=== PATIENT | female | born 1945 ===

== ENCOUNTER → 2023-03-09 | Outpatient (CLI) | payer MEDICARE ==
[~2023-03-09] MED LIST: ASPI325T6 PO; COLACE 100100 MG/CAP PO; DUO-KAPS1 CAP PO; LOPRESSOR 550 MG/TAB PO; NORCO 325 MG-51 TAB PO; OSCAL 500 TAB500 MG PO; PRINIVIL10 MG PO; QUESTRAN LI4 GM/5 GM PO; SENEXON-S 50-81 EACH PO; VITAMIN C500 MG PO
== END ==
LOC: COL.RAD 12:36
DX: N13.39 Other hydronephrosis (principal); N28.89 Other specified disorders of kidney and ureter

== ENCOUNTER → 2023-03-31 | Outpatient (CLI) | payer MEDICARE ==
[~2023-03-31] MED LIST changes: +B-121000 MCG PO; +Furosemide 40 MG/4 ML VIAL IV SCH; +PREDNISONE20 MG PO; +ULTRAM 50MG TAB50 MG PO
== END ==
LOC: COL.RAD 11:53
DX: N13.1 Hydronephrosis with ureteral stricture, not elsewhere classified (principal)
CPT/HCPCS: A9562; J1940

== ENCOUNTER 2023-08-30 14:19 | Inpatient (IN) | payer MEDICARE ==
[~2023-08-30] VITALS: Ht 152.4 cm; Wt 50.2 kg
[~2023-08-30 14:19] MED LIST changes: -Furosemide 40 MG/4 ML VIAL IV SCH
[2023-10-07] VITALS (14 sets, daily range): BP systolic 105–177; BP diastolic 47–95; PULSE 51–61; TEMP 97.5–98
[2023-10-07] MEDS ORDERED: Meclizine 25 MG TAB PO SCH (05:30)
[2023-10-07] MEDS ORDERED: LR 1,000 ML IV SCH (05:30)
[2023-10-07] MEDS ORDERED: Famotidine 20 MG TAB PO SCH (05:30)
[2023-10-07] MEDS ORDERED: Celecoxib 200 MG CAP PO SCH (06:00)
[2023-10-07] MEDS ORDERED: Acetaminophen 500 MG TAB PO SCH ×2 (06:00→13:00)
[2023-10-07] MEDS ORDERED: Gabapentin 100 MG CAP PO SCH (06:00)
[2023-10-07] MEDS ORDERED: LAMISIL250 M1 PO (06:42)
[2023-10-07] MEDS ORDERED: DESYREL 50MG50 MG PO (06:42)
[2023-10-07] MEDS ORDERED: Atracurium 50 MG/5 ML VIAL IV ONE (06:43)
[2023-10-07] MEDS ORDERED: fentaNYL 50 MCG/ML 2 ML VIAL ONE (06:44)
[2023-10-07] MEDS ORDERED: Midazolam 2 MG/2 ML VIAL ONE (06:45)
[2023-10-07] MEDS ORDERED: ELIQUIS 5MG PO (06:47)
[2023-10-07] MEDS ORDERED: dexAMETHasone 10 MG/ML VIAL ONE ×2 (06:50→07:53)
[2023-10-07] MEDS ORDERED: Lidocaine 1% w EPI (1:100,000) 20 ML Multi-Dose VIAL ONE (06:50)
--- NOTE | 2023-10-07 06:54 | NUR ---
PATIENT REPORTED THAT SHE HAD NOT TAKEN HER ELIQUIS FOR 2 WEEKS, INFORMED OVER PHONE. OK TO PROCEED WITH SURGERY TODAY.
[2023-10-07] MEDS ORDERED: 1/2 NS 1,000 ML IV SCH (07:15)
[2023-10-07] MEDS ORDERED: Naloxone 0.4 MG/ML VIAL IV PRN (07:15)
[2023-10-07] MEDS ORDERED: oxyCODONE 5 MG TAB PO PRN ×2 (07:15)
[2023-10-07] MEDS ORDERED: Morphine 4 MG/ML VIAL IV PRN (07:15)
[2023-10-07] MEDS ORDERED: Ondansetron 4 MG/2 ML VIAL IV PRN ×2 (07:15→08:30)
[2023-10-07] MEDS ORDERED: Ondansetron 4 MG/2 ML VIAL ONE (07:53)
[2023-10-07] MEDS ORDERED: Topical Skin Adhesive 1 EACH (1 ML) TOP ONE (07:55)
[2023-10-07] MEDS ORDERED: Labetalol 100 MG/20 ML Multi-Dose VIAL ONE (08:22)
[2023-10-07] MEDS ORDERED: Glycopyrrolate 0.2 MG/ML 1 ML VIAL ONE (08:28)
[2023-10-07] MEDS ORDERED: hydrALAZINE 20 MG/ML 1 ML VIAL IV PRN (08:30)
[2023-10-07] MEDS ORDERED: Meperidine 50 MG/ML 1 ML VIAL IV PRN (08:30)
[2023-10-07] MEDS ORDERED: HYDROmorphone 1 MG/1 ML SYRINGE [PACU/SDC ONLY] IV PRN (08:30)
[2023-10-07] MEDS ORDERED: fentaNYL 50 MCG/ML 1 ML SYRINGE/VIAL [PACU/SDC ONLY] IV PRN (08:30)
[2023-10-07] MEDS ORDERED: LR 1,000 ML IV ONE (08:49)
[2023-10-07] MEDS ORDERED: Metoprolol Tartrate 50 MG TAB PO SCH (09:00)
--- NOTE | 2023-10-07 12:16 | NUR ---
PATIENT ARRIVED TO FLOOR AT 1040 FROM PACU. BP INCREASED 177/67, PATIENT IN OBVIOUS DISCOMFORT. PATIENT ANSWERS TO NAME BUT UNABLE TO TELL ME HER FIRST NAME, BIRTHDAY, OR WHERE SHE IS. PATIENT FAMILY AT BEDSIDE. PATIENT NOT AWAKE ENOUGH TO HAVE SIPS OF WATER BUT TOLERATING MOUTH SWABS. PATIENT HAS NO NEEDS AT THIS TIME.
--- NOTE | 2023-10-07 12:28 | NUR ---
PATIENT BECOMING MORE AWAKE A&O X4 TALKING WITH FAMILY. PAIN LEVEL SEEMS TO HAVE DECREASED PATIENT STATES LITTLE PAIN UNABLE TO GIVE A RATING AT THIS TIME. PATIENT STATES NO NEEDS AT THIS TIME.
[2023-10-07] MEDS ORDERED: ceFAZolin 1 G in Water For Injection,Sterile 10 ML IV SCH (15:00)
[2023-10-07] MEDS ORDERED: traZODone 50 MG TAB PO SCH (21:00)
[2023-10-08] VITALS (12 sets, daily range): BP systolic 101–138; BP diastolic 48–72; PULSE 51–58; TEMP 97.8–98.3
[2023-10-08 06:27] LABS: HEMATOCRIT 24.7 % (37.0-47.0); HEMOGLOBIN 8.1 g/dl (12.5-16.0)
[2023-10-08 06:44] LABS: CALCIUM 8.8 mg/dL (8.4-10.2); CREATININE, serum 2.31 mg/dL (0.57-1.11)
--- NOTE | 2023-10-08 08:55 | NUR ---
pt awake and resting in bed. reports pain an 8/10, pain medication given. x4 lap and midline incisions are cdi. ann to dd w clear urine output, plan to remove this morning after patient eats breakfast. scds to ble. fluids infusing into right forearm IV. fall precautions in place. pt denies needs at this time. call light in reach.
--- NOTE | 2023-10-08 09:09 | NUR ---
SW met with patient to complete intake and discuss discharge planning. Patient informed SW that she resides with her daughter (Carrie Maria [phone]) in her home in [place]. Patient reports that she is fairly independent with ADLs does have assistance with her daughter for some tasks. Patient reports that she uses a cane, walker and shower chair- no additional DMEs reported. Patient shared that her PCP is Dr. Montes and her pharmacy of choice is [facility] in [place]. Patient does not have DPOA on file, she was provided information on forms available with hospital if she was interested. Patient is going to visit with her daughter and get back with SW if they decided on completing DPOA. Discharge plan: Patient is anticipating to discharge back to her home with her daughter at this time.
[2023-10-08] MEDS ORDERED: Cholestyramine/Aspartame (Sugar Free) 4 GM PACK PO SCH (09:16)
--- NOTE | 2023-10-08 10:19 | NUR ---
ann discontinued without difficulty, pale yellow urine output.
[2023-10-08] MEDS ORDERED: Phenol 1.4% Spray 180 ML BOTTLE MM PRN (11:45)
--- NOTE | 2023-10-08 13:09 | NUR ---
Data: Patient accepted spiritual care visit offered during [employer] rounds. Life review. Patient is thankful for her daughter with whom she now lives. Patient is Yars[place]. Assessment: Patient has strong valentin. Patient desired prayer. Plan of Care: [employer] provided supportive listening, a rosary, and prayer. Patient thanked [employer] for the visit. Chaplains will remain available as needed/requested while Patient is admitted to this hospital.
--- NOTE | 2023-10-08 18:07 | NUR ---
pt IV infiltrated. per dr Figueroa, pt ok to not have IV in place.
[2023-10-09] VITALS (7 sets, daily range): BP systolic 101–116; BP diastolic 51–61; PULSE 55–62; TEMP 97.6–98.3
--- NOTE | 2023-10-09 06:34 | NUR ---
UP TO RESTROOM WITH MINIMAL ASSIST, VOIDING. NO IV. TAKING PO WELL. READY TO GO HOME TODAY. JONI INTACT TO ABD, NO PAIN REPORTED.
--- NOTE | 2023-10-09 07:22 | NUR ---
Bedside report received from JEIMY Calles. Pt resting in bed with eyes closed and no complaints. Call light within reach.
--- NOTE | 2023-10-09 08:21 | NUR ---
Pt awake in bed watching tv. Shift assessment completed. VSS. Pt has complaints of ABD pain rating 3/10. Tylenol administered per mar. Pt refuses breakfast this AM. Incisions to ABD CDI. [place] intact and edges well approximated. Pt has no request at this time. Call light within reach and fall precautions in place.
--- NOTE | 2023-10-09 10:17 | NUR ---
travelers' aid worker was informed by plastic jig and fixture builder that pt is a likely discharge. No needs. Discharge Plan: home
--- NOTE | 2023-10-09 14:28 | NUR ---
Discharge instructions provided to pt and pt verbalized understanding of discharge paperwork. Pt is going back home with daughter. Pt left in ED waiting room as daughter is in ED waiting room for son. ED admissions aware that pt is leaving with daughter.
== END 2023-10-09 14:25 | disposition home or self-care (01) | DRG 661 ==
LOC: INPTSU 10-07 05:43 → SURG 10-07 07:30
PROVIDERS: ADMIT Urology
PROC: 8E0Y4CZ Robotic Assisted Procedure of Lower Extremity, Percutaneous Endoscopic Approach (ICD-10-PCS; 2023-10-07)
PROC: 0TT14ZZ Resection of Left Kidney, Percutaneous Endoscopic Approach (ICD-10-PCS; principal; 2023-10-07 07:30)
DX: N13.30 Unspecified hydronephrosis (principal)
CPT/HCPCS: A4314; A9284; J0690; J1100; J1920; J2250; J2270; J2405; J2704; J2795; J3010; J7120